=== PATIENT | male | born 1945 | race Caucasian/White ===

== ENCOUNTER 2021-04-13 06:50 | Inpatient (IN) ==
[2021-04-13] MEDS ORDERED: *HR* HYDROmorphone PF 0.5 MG/0.5 ML SYRINGE IVP PRN (07:21)
[2021-04-13] MEDS ORDERED: Acetaminophen IV 1,000 MG/100 ML BAG IVPB ONE (07:21)
[2021-04-13] MEDS ORDERED: CeFAZolin Syr 2,000MG/20 ML 2,000 MG/20 ML SYRINGE IVPB ONE (07:21)
[2021-04-13] MEDS ORDERED: *HR* FentaNYL (PF) 100 MCG/2 ML VIAL IVP PRN (07:21)
[2021-04-13] MEDS ORDERED: Ringers Solution, Lactated 1,000 ML IVC SCH (07:30)
[2021-04-13] MEDS ORDERED: *HR* Propofol 200 MG/20 ML VIAL IVP ONE ×2 (08:54→12:56)
[2021-04-13] MEDS ORDERED: *HR* FentaNYL (PF) 100 MCG/2 ML VIAL ONE ×2 (08:54→10:32)
[2021-04-13] MEDS ORDERED: Ondansetron 4 MG/2 ML VIAL ONE (08:55)
[2021-04-13] MEDS ORDERED: *HR* Succinylcholine 200 MG/10 ML VIAL IVP ONE (08:55)
[2021-04-13] MEDS ORDERED: Lidocaine -MPF 2% 5 ML VIAL ONE (08:55)
[2021-04-13] MEDS ORDERED: *HR* Rocuronium Bromide 50 MG/5 ML VIAL ONE ×3 (08:55→11:27)
[2021-04-13] MEDS ORDERED: EPHEDrine 50 MG/ML VIAL ONE (10:11)
[2021-04-13] MEDS ORDERED: Albumin Human 5% 12.5 GM/250 ML IV.SOLN ONE (10:13)
[2021-04-13] MEDS ORDERED: *HR* Labetalol 20 MG/4 ML SYRINGE IVP ONE (12:04)
[2021-04-13] MEDS ORDERED: *HR* HYDROMORPHONE 2 MG/ML VIAL ONE (12:09)
[2021-04-13] MEDS ORDERED: Sugammadex Sodium 200 MG/2 ML VIAL IV ONE ×3 (12:14→13:14)
[2021-04-13] MEDS ORDERED: Naloxone 0.4 MG/ML INJ IVP PRN (14:23)
[2021-04-13] MEDS ORDERED: Ondansetron 4 MG/2 ML VIAL IVP PRN (14:23)
[2021-04-13] MEDS ORDERED: *HR* Metoprolol 5 MG/5 ML VIAL IVP PRN (14:23)
[2021-04-13] MEDS: *HR* OxyCODONE/APAP 5/325 TABLET PO PRN ×2 (16:54→21:50)
[2021-04-13] MEDS: CeFAZolin 2 GM/120 ML BAG IVPB SCH (20:12)
[2021-04-14] MEDS: CeFAZolin 2 GM/120 ML BAG IVPB SCH ×3 (03:31→17:48)
[2021-04-14] MEDS: *HR* OxyCODONE/APAP 5/325 TABLET PO PRN ×3 (03:35→14:29)
[2021-04-14 06:30] LABS: Basophils % 0.3 %; Eosinophils # 0.1 K/mcL (0.0-0.6); Eosinophils % 1.1 %; Hematocrit 38.9 % (37.5-50.1); Hemoglobin 12.6 g/dL (12.9-16.9); Immature Granulocytes % 0.3 % (0-4); Lymphocytes # 1.6 K/mcL (0.6-4.6); Lymphocytes % 12.6 %; Mean Corpuscular HGB Conc 32.4 g/dL (31.6-35.5); Mean Corpuscular Hemoglobin 30.7 pg (28.0-33.3); Mean Corpuscular Volume 94.6 fL (83.0-100.0); Mean Platelet Volume 10.7 fL (9.4-12.4); Monocytes # 1.1 K/mcL (0.0-1.3); Monocytes % 8.9 %; Neutrophils # 9.8 K/mcL (1.6-8.9); Platelet Count 227 K/mcL (140-400); Red Blood Count 4.11 M/mcL (4.19-5.50); Red Cell Distribution Width 13.4 % (11.5-14.5); Segmented Neutrophils % 76.8 %; White Blood Count 12.8 K/mcL (4.3-11.1)
[2021-04-14] MEDS: Pantoprazole 40 MG VIAL IVP SCH (09:47)
[2021-04-14 09:51] LABS: BUN/Creatinine Ratio 16 (6-26); Blood Urea Nitrogen 14 mg/dL (8-23); Calcium 9.2 mg/dL (8.6-10.3); Carbon Dioxide 28 mEq/L (23-29); Chloride 104 mEq/L (98-107); Glucose 95 mg/dL (70-105); Osmolality,Calculated 288 (280-300); Potassium 4.2 mEq/L (3.5-5.1); Sodium 139 mEq/L (136-145); eGFR For African Americans > 60 (> 60); eGFR For Non-African Americans > 60 (> 60)
[2021-04-14] MEDS: Ketorolac 15 MG/ML VIAL IVP SCH (17:48)
[2021-04-15] MEDS: *HR* OxyCODONE/APAP 7.5/325 TABLET PO PRN ×2 (00:22→21:04)
[2021-04-15] MEDS: Ketorolac 15 MG/ML VIAL IVP SCH ×4 (00:22→17:28)
[2021-04-15] MEDS: CeFAZolin 2 GM/120 ML BAG IVPB SCH ×3 (01:48→17:29)
[2021-04-15 03:16] LABS: Basophils % 0.3 %; Eosinophils # 0.8 K/mcL (0.0-0.6); Eosinophils % 6.8 %; Hematocrit 38.8 % (37.5-50.1); Hemoglobin 12.6 g/dL (12.9-16.9); Immature Granulocytes % 0.5 % (0-4); Lymphocytes # 1.6 K/mcL (0.6-4.6); Lymphocytes % 14.7 %; Mean Corpuscular HGB Conc 32.5 g/dL (31.6-35.5); Mean Corpuscular Volume 95.3 fL (83.0-100.0); Mean Platelet Volume 10.6 fL (9.4-12.4); Monocytes # 0.9 K/mcL (0.0-1.3); Monocytes % 7.8 %; Neutrophils # 7.7 K/mcL (1.6-8.9); Platelet Count 217 K/mcL (140-400); Red Blood Count 4.07 M/mcL (4.19-5.50); Red Cell Distribution Width 13.2 % (11.5-14.5); Segmented Neutrophils % 69.9 %
[2021-04-15 03:34] LABS: BUN/Creatinine Ratio 22 (6-26); Blood Urea Nitrogen 19 mg/dL (8-23); Calcium 9.1 mg/dL (8.6-10.3); Carbon Dioxide 25 mEq/L (23-29); Chloride 103 mEq/L (98-107); Glucose 112 mg/dL (70-105); Magnesium 1.8 mg/dL (1.6-2.6); Osmolality,Calculated 285 (280-300); Phosphorous 2.2 mg/dL (2.7-4.5); Potassium 3.9 mEq/L (3.5-5.1); Sodium 136 mEq/L (136-145); eGFR For African Americans > 60 (> 60); eGFR For Non-African Americans > 60 (> 60)
[2021-04-15] MEDS: Pantoprazole 40 MG VIAL IVP SCH (09:20)
[2021-04-16] MEDS: Ketorolac 15 MG/ML VIAL IVP SCH ×3 (00:14→11:28)
[2021-04-16] MEDS: CeFAZolin 2 GM/120 ML BAG IVPB SCH ×2 (01:37→08:59)
[2021-04-16 05:18] LABS: Basophils % 0.4 %; Eosinophils # 0.9 K/mcL (0.0-0.6); Eosinophils % 9.4 %; Hematocrit 35.4 % (37.5-50.1); Hemoglobin 11.9 g/dL (12.9-16.9); Immature Granulocytes % 0.4 % (0-4); Lymphocytes # 2.1 K/mcL (0.6-4.6); Lymphocytes % 23.4 %; Mean Corpuscular HGB Conc 33.6 g/dL (31.6-35.5); Mean Corpuscular Hemoglobin 31.8 pg (28.0-33.3); Mean Corpuscular Volume 94.7 fL (83.0-100.0); Mean Platelet Volume 10.9 fL (9.4-12.4); Monocytes # 0.8 K/mcL (0.0-1.3); Monocytes % 8.3 %; Neutrophils # 5.3 K/mcL (1.6-8.9); Platelet Count 191 K/mcL (140-400); Red Blood Count 3.74 M/mcL (4.19-5.50); Red Cell Distribution Width 13.1 % (11.5-14.5); Segmented Neutrophils % 58.1 %; White Blood Count 9.1 K/mcL (4.3-11.1)
[2021-04-16 05:33] LABS: BUN/Creatinine Ratio 28 (6-26); Blood Urea Nitrogen 24 mg/dL (8-23); Calcium 8.8 mg/dL (8.6-10.3); Carbon Dioxide 26 mEq/L (23-29); Chloride 108 mEq/L (98-107); Glucose 101 mg/dL (70-105); Osmolality,Calculated 294 (280-300); Sodium 140 mEq/L (136-145); eGFR For African Americans > 60 (> 60); eGFR For Non-African Americans > 60 (> 60)
[2021-04-16 07:05] VITALS: PULSE 74
[2021-04-16] MEDS: Pantoprazole 40 MG VIAL IVP SCH (08:59)
[2021-04-16 11:05] VITALS: BP 130/85; TEMP 97.5; O2SAT 97
== END 2021-04-16 14:48 | disposition home or self-care (01) | DRG 337 ==
LOC: SAMDAY 06:50 → 3ANU 14:15
PROVIDERS: ADMIT Surgery; ATTEND Surgery